=== PATIENT | female | born 1930 | race African-American/Black ===

== ENCOUNTER 2018-10-15 10:31 | Outpatient (CLI) | payer MEDICARE, OTHER ==
[~2018-10-15] VITALS: Ht 149.9 cm; Wt 64.5 kg
[2018-10-15 12:16] VITALS: BP 149/68; PULSE 66; TEMP 98.1
[2018-10-15] MEDS ORDERED: CALCIUM 600MG+D1 TAB PO (12:18)
[2018-10-15] MEDS ORDERED: FLONASEALLERGY NS (12:18)
[2018-10-15] MEDS ORDERED: HCTZ12.5TAB PO (12:19)
[2018-10-15] MEDS ORDERED: LASIX 40MG TABL40 MG PO (12:19)
[2018-10-15] MEDS ORDERED: K-DUR20 MEQ PO (12:20)
[2018-10-15] MEDS ORDERED: NAMENDA 10MG TA10 MG PO (12:20)
[2018-10-15] MEDS ORDERED: PROAIR HFA0.09 MG/AC IH (12:21)
[2018-10-15] MEDS ORDERED: NATURAL E400 IU PO (12:21)
[2018-10-15] MEDS ORDERED: CEPHALEXIN500 M1 PO (13:14)
[2018-10-15 13:56] VITALS: BP 163/67; PULSE 88
--- NOTE | 2018-10-15 14:27 | NUR ---
Discharge instructions given to pt.Pt verbalizes understanding.pt escorted out via wheelchair by this nurse.
== END 2018-10-15 14:28 | disposition home or self-care (01) ==
LOC: COL.CAR 10:31
DX: I47.1 Supraventricular tachycardia (principal); I10 Essential (primary) hypertension; F03.90 Unspecified dementia, unspecified severity, without behavioral disturbance, psychotic disturbance, mood disturbance, and anxiety; I34.0 Nonrheumatic mitral (valve) insufficiency; Z79.82 Long term (current) use of aspirin; Z88.7 Allergy status to serum and vaccine; Z88.5 Allergy status to narcotic agent; Z88.8 Allergy status to other drugs, medicaments and biological substances; Z88.6 Allergy status to analgesic agent

== ENCOUNTER → 2018-12-19 | Outpatient (CLI) | payer MEDICARE, OTHER ==
[~2018-12-19] MED LIST: CALCIUM 600MG+D1 TAB PO; CEPHALEXIN500 M1 PO; FLONASEALLERGY NS; HCTZ12.5TAB PO; K-DUR20 MEQ PO; LASIX 40MG TABL40 MG PO; NAMENDA 10MG TA10 MG PO; NATURAL E400 IU PO; PROAIR HFA0.09 MG/AC IH
== END ==
LOC: COL.PUL 12:41
DX: R06.02 Shortness of breath (principal)